=== PATIENT | male | born 1990 | race African-American/Black ===

== ENCOUNTER 2016-12-12 04:25 | Emergency (ER) | payer SELFPAY ==
[~2016-12-12] VITALS: Ht 188 cm; Wt 120.0 kg
[2016-12-12 07:19] LABS: CLARITY URINE CLEAR (CLEAR); COLOR URINE YELLOW (YELLOW); GLUCOSE URINE NEGATIVE (NEGATIVE); KETONES URINE NEGATIVE (NEGATIVE); LEUKOCYTE ESTERASE URINE NEGATIVE (NEGATIVE); NITRITE URINE NEGATIVE (NEGATIVE); OCCULT BLOOD URINE TRACE (NEGATIVE); PROTEIN URINE NEGATIVE (NEGATIVE); SPECIFIC GRAVITY URINE 1.022 (1.005-1.030)
[2016-12-12 07:20] VITALS: BP 133/77
== END 2016-12-12 07:49 | disposition home or self-care (01) ==
LOC: ER 04:25
DX: M54.5 Low back pain (principal); Z87.440 Personal history of urinary (tract) infections
CPT/HCPCS: 81001; 99283